=== PATIENT | male | born 2000 | race Caucasian/White ===

== ENCOUNTER 2024-03-04 22:49 | Emergency (ER) | payer OTHER, SELFPAY ==
[2024-03-04 22:50] VITALS: BP 121/107; PULSE 115; RESP 17; TEMP 36.1; O2SAT 100; BMI 24.5
--- NOTE | 2024-03-04 23:07 | ED.VIS.GI ---
HPI HPI - GI History of Present Illness Chief Complaint: Nausea/Vomiting/Diarrhea Informant: patient and spouse/S.O. Abdominal Pain/Flank Pain Onset: Hours (2) Context: Gradual Onset Quality: - (in a knot) Location: Diffuse Nausea/Vomiting/Emesis GI Symptom: Positive for Nausea and Vomiting Onset: Hours (2) Quality: Positive for Nonbilious; Negative for Blood streaks, Coffee ground or Hematemesis Severity: Severe Diarrhea/Melena/Hematochezia GI Symptom: Positive for Diarrhea; Negative for Melena or Hematochezia Onset: Hours (2) Associated Symptoms Associated Symptoms: Negative for Dysuria or Hematuria Narrative Narrative: 2 hours worth of subjective fevers, nausea, vomiting, diarrhea, and a headache that feels like a band around his head that started after the vomiting. States parents ill with similar symptoms recently. No recent antibiotics or travel out of the area. No blood anywhere. [facility] Medical History Asthma Home Medications dicyclomine 10 mg capsule 20 mg (2 x 10 mg) PO Q6H PRN PRN abdominal pain #20 CAPSULES 03/04/24 [Rx Last Taken Unknown] ondansetron 8 mg disintegrating tablet 8 mg PO Q8H PRN nausea and vomiting #20 tabs 03/04/24 [Rx Last Taken Unknown] Allergy/AdvReac Type Severity Reaction Status Date / Time No Known Allergies Allergy Verified 03/04/24 22:52 Social History Smoking Status: Never smoker ROS ROS ED Constitutional Constitutional ED: Reports chills, fever(s) and subjective Eyes Eyes: Reports photophobia; Denies change in vision or diplopia ENT ENT ED: Denies rhinorrhea or sore throat Cardiovascular Cardiovascular: Denies chest pain or palpitations Respiratory/Chest Respiratory/Chest: Denies cough or dyspnea Gastrointestinal Gastrointestinal: Reports abdominal pain, diarrhea, nausea and vomiting Genitourinary Genitourinary ED: Denies dysuria or hematuria Musculoskeletal Musculoskeletal: Denies back pain or neck pain Integumentary Denies abscess or rash Neurologic Neurologic: Reports headache(s); Denies paresthesias or weakness Psychiatric Psychiatric: Denies suicidal thoughts EXAM Physical Exam Const Vital Signs: 03/04/24 22:50 Temperature 97 F L Temperature Source Temporal Pulse Rate 115 H Respiratory Rate 17 Blood Pressure 121/107 H Blood Pressure Mean 111 Pulse Ox 100 Oxygen Delivery Method Room Air Positive well nourished and well developed General Appearance ED: well developed and NAD HEENT Reports moist mucous membranes normocephalic and atraumatic Eyes PERRL and EOMs intact bilaterally Neck full ROM and supple Resp normal respiratory effort and clear to auscultation bilaterally Cardio regular rate, regular rhythm and no murmurs Rate: tachycardic GI non-tender and non-distended Auscultation: hyperactive bowel sounds Palpation: soft Back/Spine no CVA tenderness General Back: other FROM Extremity normal to inspection General Extremety ED: Negative for edema, pulses abnormal or tenderness General Extremity: Negative for edema or pulses abnormal Neuro oriented x3, CN's II-XII intact bilaterally and no sensory deficits noted Sensorium / Orientation: awake and alert Motor Exam: strength 5/5 throughout Psych thought process normal Mood & Affect: anxious Skin no rashes or lesions noted and no wounds MDM MDM MDM Narrative Medical decision making narrative: Initially the patient was so uncomfortable nauseated that he would not allow abdominal exam, so this was done after we got some IV fluids and metoclopramide in him and he started to feel better. Abdomen very benign. I think he is feeling intestinal spasm and other symptoms from most likely viral gastroenteritis, we have been seeing a high prevalence of this in the community lately, anecdotally, and he had exposure to it in his parents according to him. I do not think we need to run other test here, since he has only had symptoms for couple hours. I do not think this is appendicitis, although as I discussed with him, symptoms change and if he develops right lower quadrant focal pain in the near future he should return. Otherwise he is passing a p.o. fluid challenge, given dicyclomine which also helped his abdominal discomfort, and I will give him prescriptions for supportive care to use at home. Discharge Plan Triage Chief Complaint: Nausea/Vomiting/Diarrhea ED Provider: Milad Hernandez Dx/Rx/DC Orders Clinical Impression: Gastroenteritis Instructions: ED Gastroenteritis, Viral (Adult) Prescriptions: New dicyclomine 10 mg capsule 20 mg PO Q6H PRN PRN (Reason: abdominal pain) Qty: 20 0RF ondansetron 8 mg tablet,disintegrating 8 mg PO Q8H PRN (Reason: nausea and vomiting) Qty: 20 0RF Primary Care Provider: Care Physician,No Primary Referrals: Doctor,Your [Non-Staff] - 1 Week if not improving Disposition Disposition: Home, Self Care
[2024-03-04] MEDS: 0.9% Normal Saline (1000mL) 1,000 ML 999 ML IV (23:18)
[2024-03-04] MEDS: Ketorolac 30 MG/ML Syringe IV (23:18)
[2024-03-04] MEDS: Metoclopramide 10 MG/2 ML Vial IV (23:18)
[2024-03-04] MEDS: Dicyclomine 10 MG Capsule 20 MG PO (23:40)
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
== END 2024-03-05 00:18 | disposition home or self-care (01) ==
PROVIDERS: Emergency Provider Emergency Medicine; Visit Provider Emergency Medicine
DX: K52.9 Noninfective gastroenteritis and colitis, unspecified (principal); J45.909 Unspecified asthma, uncomplicated
CPT/HCPCS: 96361; 96374; 96375; 99282; J7030

== ENCOUNTER 2024-11-14 17:34 | Emergency (ER) | payer OTHER, SELFPAY ==
[2024-11-14 17:35] VITALS: BP 132/72; PULSE 85; RESP 20; TEMP 36.8; O2SAT 98; BMI 22.2
--- NOTE | 2024-11-14 18:38 | EDS_ITS ---
HPI History of Present Illness Chief Complaint: Laceration Narrative Narrative: Chief complaint and HPI: Left middle finger laceration. 24-year-old male presents for evaluation of left middle finger laceration. Patient states that he was cutting chicken prior to arrival in which he accidentally cut his left middle finger with a knife. Minimal bleeding. Denies any numbness or tingling. Denies injury elsewhere. Up-to-date on childhood vaccines but has not had a updated tetanus. Review of systems: See HPI Medications: As listed on the chart Allergies: As listed on the chart PFSH: Per chart Vital signs: As listed on the chart. Reviewed. Physical exam: Gen: A&O x3, NAD Head: Normocephalic, atraumatic Eyes: No sclera icterus, conjunctiva clear ENT: Moist mucous membranes CV: Regular rate Resp: Nonlabored respiration Musc: Full range of motion of the left hand, wrist, fingers without deformity. Patient does have a laceration to the dorsal aspect of the distal left middle finger that involves the nail. Minimal active bleeding. Radial/ulnar pulses plus 2 out of 4. Good capillary refill Skin: Warm, dry Neuro: Alert, oriented, grossly intact, sensation intact Psych: Cooperative, appropriate mood and affect [facility] Medical History (Updated 11/14/24 @ 20:[address] Vineet Newsome DO) Anxiety Asthma Home Medications ?Medication ?Instructions ?Recorded ?Last Taken ?Type cephalexin 500 mg capsule 500 mg PO BID 5 days #10 caps 11/14/24 Unknown Rx Allergy/AdvReac Type Severity Reaction Status Date / Time No Known Allergies Allergy Verified 03/04/24 22:52 Social History Smoking Status: Never smoker EXAM Physical Exam Const Vital Signs: 11/14/24 17:35 11/14/24 20:19 Temperature 98.2 F 98 F Temperature Source Temporal Pulse Rate 85 80 Respiratory Rate 20 H 18 Blood Pressure 132/72 H 110/61 Blood Pressure Mean 92 77 Pulse Ox 98 99 Oxygen Delivery Method Room Air MDM MDM MDM Narrative Medical decision making narrative: 24-year-old male presents for evaluation of left middle finger laceration. See physical exam findings. Tetanus updated. Laceration was cleaned and repaired. Sutures need to be removed in 7 days. Follow-up with PCP. Monitor for infection. Patient placed on Keflex for prophylactics antibiotics. Patient stable to discharge home. Return precautions explained. Laceration Repair Indication: Laceration, 2 cm Location: Distal left middle finger Consent: Risks, benefits, and alternatives discussed with patient and consent obtained Procedure: A time out was performed. The area was prepped and draped in the usual sterile fashion. Local anesthesia was achieved using 1% Lidocaine without epinephrine. Local anesthesia was achieved using a digital block. The wound was copiously irrigated and cleansed. Using scissors the patient's distal radial aspect of the nail was removed as it was involved in the laceration. Overall, 7 sutures were placed using 4-0 Ethilon in an interrupted fashion. The estimated blood loss was minimal. A dressing was applied to the area with Bacitracin. The patient tolerated the procedure well without complications. Foreign Material: None Debridement: Partial nail removal Follow-up: Anticipatory guidance, as well as standard post-procedure care, was explained. Return precautions are given. Follow-up visit set for suture removal and evaluation of the laceration. Impression: 1. Left middle finger laceration, repaired Discharge Plan Triage Chief Complaint: Laceration ED Provider: Vineet Newsome Dx/Rx/DC Orders Clinical Impression: Finger laceration Instructions: ED Laceration, Hand: All Closures Prescriptions: New cephalexin 500 mg capsule 500 mg PO BID 5 Days Qty: 10 0RF Primary Care Provider: Care Physician,No Primary Referrals: Kamaljit Herrera MD [Med Staff - Active Staff] - 3-5 Days Care Physician,No Primary [Primary Care Provider] - Activity Restrictions/Additional Instructions: Sutures need to be removed in 7 days. Follow-up with primary care physician. If you do not have 1 follow-up with the 1 provided above. Monitor for signs of infection. Okay to shower in 24 hours. No bathtubs, hot tubs, lakes, tidwell, oceans until fully healed Print Language: [place] Disposition Disposition: Home, Self Care Discharge Date/Time: 11/14/24 20:21
[2024-11-14] MEDS: Diphth,Pertuss(Acell),Tet Vac 0.5 ML Vial IM (18:43)
[2024-11-14] MEDS: Lidocaine 1% (20 ml mdv) 20 ML Vial INFILT (18:43)
[2024-11-14 20:19] VITALS: BP 110/61; PULSE 80; RESP 18; TEMP 36.6; O2SAT 99
== END 2024-11-14 20:21 | disposition home or self-care (01) ==
PROVIDERS: Emergency Provider Surgery; Visit Provider Surgery
DX: S61.313A Laceration without foreign body of left middle finger with damage to nail, initial encounter (principal); W26.0XXA Contact with knife, initial encounter; Y93.G1 Activity, food preparation and clean up; Z23 Encounter for immunization
CPT/HCPCS: 12001; 90471; 90715; 99284

== ENCOUNTER 2025-01-18 09:33 | Emergency (ER) | payer OTHER, SELFPAY ==
[2025-01-18 09:33] VITALS: BP 144/74; PULSE 78; RESP 16; TEMP 37.1; O2SAT 98; BMI 22.8
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
--- NOTE | 2025-01-18 10:10 | EKG12_ITS ---
Test Reason : Blood Pressure : */* mmHG Vent. Rate : 100 BPM Atrial Rate : 100 BPM P-R Int : 112 ms QRS Dur : 100 ms QT Int : 380 ms P-R-T Axes : 80 72 51 degrees QTcB Int : 490 ms Normal sinus rhythm Borderline QT interval BORDERLINE Confirmed by Froilan Pabon ([id number]), map editor TOMASA WILLAMS ([id number]) on 01/19/2025 9:32:47 AM Referred By: Confirmed By: Froilan Pabon
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
[2025-01-18] MEDS: 0.9% Normal Saline (1000mL) 1,000 ML 999 ML IV (10:27)
[2025-01-18] MEDS: Ondansetron 4 MG/2 ML Vial IV (10:28)
[2025-01-18] MEDS: Ketorolac 15 MG/ML Vial IV (10:28)
[2025-01-18] MEDS: Orphenadrine 60 MG/2 ML Ampul 30 MG IV (10:29)
[2025-01-18 10:34] LABS: Absolute Lymphocyte Count 0.99 X10^3/uL (0.83-4.51); Absolute Neutrophil Count 12.2 X10^3/uL (2.0-7.7); Basophil# 0.02 X10^3/uL; Basophil% 0.1 % (0-1); Hematocrit 47.7 % (40-54); Hemoglobin 16.3 g/dL (13.0-16.5); Lymphocyte # 0.99 X10^3/ul (0.83-4.51); Lymphocyte % 7.2 % (19-41); Mean Corp Hgb Conc 34.2 g/dL (32-36); Mean Corpuscular Hgb 30.8 pg (27.0-32.0); Mean Platelet Vol. 10.1 fl (6.2-12.0); Monocyte# 0.49 X10^3/uL; Monocyte% 3.6 % (0-10); NRBC Flagged by Analyzer 0 % (0-5); Neutrophil # 12.15 X10^3/uL (2.7-7.7); Neutrophil % 88.8 % (47-70); Platelet Count 294 K/mm3 (150-450); White Blood Count 13.7 K/mm3 (4.4-11.0)
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
[2025-01-18 11:12] LABS: AST(SGOT) 30 U/L (<=37); Alanine Aminotransfer ALT/SGPT 22 U/L (<=46); Albumin, Serum 5.5 g/dL (3.5-5.0); Alkaline Phosphatase 81 U/L (40-129); Anion Gap 16 (5-15); BUN 16 mg/dL (4-19); BUN/Creat Ratio 16.7 RATIO (10-20); Bilirubin, Direct 0.27 mg/dL (0.00-0.30); Calcium 10.2 mg/dL (7.6-11.0); Carbon Dioxide 25.6 mmol/L (22.0-29.0); Chloride 98 mmol/L (96-108); Creatinine, Serum 0.9 mg/dL (0.8-1.3); EST Glomerular Filtration Rate 120 (>60); Estimated Creatinine Clearance 128.03 ml/min; Globulin 2.9 g/dL (2.2-4.2); Glucose 81 mg/dL (70-99); Potassium 4.7 mmol/L (3.3-5.1); Protein, Total 8.4 g/dL (5.9-8.4); Sodium Level 139 mmol/L (133-145); Total Bilirubin 0.68 mg/dL (0.00-1.30)
[2025-01-18 11:19] VITALS: BP 135/70; PULSE 69; RESP 17; O2SAT 100
[2025-01-18] MEDS: HYDROcodone Bitartrate/Apap 5/325 Tablet PO (11:58)
[2025-01-18 12:22] VITALS: BP 121/57; PULSE 66; RESP 18; O2SAT 99
[2025-01-18 13:00] VITALS: BP 118/59; PULSE 75; RESP 17; O2SAT 99
[2025-01-18 13:50] VITALS: BP 125/74; PULSE 76; RESP 17; TEMP 36.1; O2SAT 99
[2025-01-18 14:00] VITALS: BP 124/50; PULSE 70; RESP 12; O2SAT 98
--- NOTE | 2025-01-18 14:44 | CM.ED ---
Social Work Reason for visit: No PCP Patient verified that that he did not currently have a PCP, [facility] provider list given. No further needs identified at this time. Joan Cloud, TEST DESK SUPERVISOR, WEB MARKETING SPECIALIST
== END 2025-01-18 14:04 | disposition home or self-care (01) ==
PROVIDERS: Emergency Provider Emergency Medicine; Visit Provider Emergency Medicine
DX: S62.306A Unspecified fracture of fifth metacarpal bone, right hand, initial encounter for closed fracture (principal); V43.52XA Car driver injured in collision with other type car in traffic accident, initial encounter
CPT/HCPCS: 29105; 70450; 71260; 72125; 73000; 73130; 73590; 74177; 80048; 80076; 85025; 93005; 96361; 96374; 96375; 99284; Q9967; J2405